=== PATIENT | female | born 1950 | race Caucasian/White ===

== ENCOUNTER 2018-12-03 12:50 | Emergency (ER) | payer MEDICARE, BC ==
--- NOTE | 2018-12-03 13:44 | EDM.PDOC ---
ED HPI GENERAL MEDICAL PROBLEM - General Chief Complaint: Lower Extremity Injury/Pain Stated Complaint: INFECTED FINGER Time Seen by Provider: 12/03/18 13:25 Source of Information: Reports: Patient, Skilled Nursing Records - History of Present Illness INITIAL COMMENTS - FREE TEXT/NARRATIVE: Debbie presents to the ED today with redness and swelling to left index finger. Denies any known injury or trauma, finger swollen yesterday, redness started today. Patient denies any other complaints, Tylenol did help with pain last night, pain worse with palpation. Patient denies any systemic symptoms. Patient is hypertensive here, takes Losartan at home, denies any chest pain, sob , headache. 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 ED EXAM, GENERAL - Physical Exam Exam: See Below Exam Limited By: No Limitations General Appearance: Alert, WD/WN, No Apparent Distress Respiratory/Chest: No Respiratory Distress, Lungs Clear, Normal Breath Sounds Cardiovascular: Regular Rate, Rhythm Back Exam: Normal Inspection Extremities: Normal Inspection, Normal Range of Motion, Other (Midly limited flexion of left index finger) Neurological: Alert, Oriented, CN II-XII Intact Psychiatric: Normal Affect, Normal Mood Skin Exam: Other (redeness to left index finger, mid phalangee on exterior lateral portion, petechiae, unblanchable with two small blood blisters, mildly warm, not hot, minimal swelling) Course - Vital Signs Last Recorded V/S: Last Vital Signs Temp 37.6 C 12/03/18 13:10 Pulse 74 12/03/18 13:10 Resp 18 12/03/18 13:10 BP 195/94 H 12/03/18 13:13 Pulse Ox 95 12/03/18 13:10 Debbie is a 68 year old female, hx of diabetes, presents today with redness and swelling to left index finger. Please refer to HPI and focused exam. Patient arrives here asymptomatically hypertensive and afebrile. Concerns with exam, more petechiae than cellulitic appearing. 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 Patient's blood work obtained, CBC, returns with normal platelet and white count, BMP with mildly low potassium, otherwise WNL. I did ask Dr. Collazo to evaluate finger as well due to unusual presentation, she agrees this is not typical of a cellulitis appearance but will cover patient with antibiotics and see how she does. I discussed my concerns with patient in detail as well as reasons to return to the ED. Certainly if this worsens or begins in other areas or patient develops systemic symptoms, I want her back here. Patient agreeable to plan of care and discharged in stable condition. - Orders/Labs/Meds Labs: Laboratory Tests 12/03/18 12/03/18 Range/Units 13:40 13:40 WBC 5.0 (4.5-11.0) K/uL RBC 4.87 (3.30-5.50) M/uL Hgb 14.9 (12.0-15.0) g/dL Hct 41.7 (36.0-48.0) % MCV 86 (80-98) fL MCH 31 (27-31) pg MCHC 36 (32-36) % Plt Count 158 (150-400) K/uL Neut % (Auto) 64 (36-66) % Lymph % (Auto) 24 (24-44) % [place] % (Auto) 10 H (2-6) % Eos % (Auto) 1 L (2-4) % Baso % (Auto) 1 (0-1) % Sodium 140 (140-148) mmol/L Potassium 3.5 L (3.6-5.2) mmol/L Chloride 105 (100-108) mmol/L Carbon Dioxide 28 (21-32) mmol/L Anion Gap 10.5 (5.0-14.0) mmol/L BUN 16 (7-18) mg/dL Creatinine 0.8 (0.6-1.0) mg/dL Est Cr Clr Drug Dosing 49.69 mL/min Estimated GFR (MDRD) > 60 (>60) Glucose 100 (74-106) mg/dL Calcium 8.9 (8.5-10.1) mg/dL Departure - Departure Time of Disposition: 14:30 Disposition: Home, Self-Care 01 Condition: Good Clinical Impression: Finger infection - Discharge Information Instructions: Cellulitis, Adult Referrals: PCP,None [Primary Care Provider] - Forms: ED Department Discharge Additional Instructions: Return with any worsening symptoms. You can take Tylenol, 650 mg every 4 hours for pain. Start Bactrim today, take as directed, take with food.
== END 2018-12-03 14:31 | disposition home or self-care (01) ==
LOC: JP.ED 12:50
DX: L08.9 Local infection of the skin and subcutaneous tissue, unspecified (principal); I10 Essential (primary) hypertension; Z79.899 Other long term (current) drug therapy
CPT/HCPCS: 36415; 80048; 85025; 99283

== ENCOUNTER 2019-02-26 06:20 | Day surgery (SDC) | payer MEDICARE, BC ==
[2019-02-26] MEDS ORDERED: Acetaminophen 500 MG Tab PO ONE (06:30)
[2019-02-26] MEDS ORDERED: Bupivacaine 0.5% 50 ML MDV ONE (06:42)
[2019-02-26] MEDS ORDERED: Lidocaine 1% with EPINEPHrine 1:100,000 50 ML MDV ONE (06:42)
[2019-02-26] MEDS ORDERED: Isosulfan Blue 5 ML SDV ONE (06:42)
[2019-02-26] MEDS ORDERED: Scopolamine 1.5 MG Transdermal Patch TRDERM SCH (07:00)
[2019-02-26] MEDS ORDERED: Neostigmine Methylsulfate 1 MG/ML 5 ML Syringe ONE (07:06)
[2019-02-26] MEDS ORDERED: Propofol 200 MG/20 ML SDV ONE (07:06)
[2019-02-26] MEDS ORDERED: Rocuronium 50 MG/5 ML Vial ONE (07:06)
[2019-02-26] MEDS ORDERED: fentaNYL 250 MCG/5 ML SDV ONE (07:06)
[2019-02-26] MEDS ORDERED: Glycopyrrolate 0.2 MG/ML 5 ML MDV ONE (07:06)
[2019-02-26] MEDS ORDERED: Dexamethasone 4 MG/ML SDV ONE (07:06)
[2019-02-26] MEDS ORDERED: Ondansetron 4 MG/2 ML SDV ONE (07:06)
[2019-02-26] MEDS: Dextrose 5%-Lactated Ringers 1,000 ML IV SCH ×2 (07:31→22:03)
[2019-02-26] MEDS ORDERED: ceFAZolin 2 GM in Premix Bag 1 BAG IV ONE (08:15)
[2019-02-26] MEDS ORDERED: Ondansetron 4 MG/2 ML SDV IVPUSH PRN (12:48)
[2019-02-26] MEDS ORDERED: HYDROmorphone 1 MG/ML Syringe IV PRN (12:49)
[2019-02-26] MEDS ORDERED: Ibuprofen 800 MG Tab PO PRN (12:49)
[2019-02-26] MEDS ORDERED: HYDROmorphone 0.5 MG/0.5 ML Syringe IVPUSH PRN (12:49)
[2019-02-26] MEDS: Acetaminophen 325 MG Tab PO SCH ×2 (14:52→20:30)
[2019-02-26] MEDS: ceFAZolin 2 GM in Premix Bag 1 BAG IV SCH ×2 (16:04→23:34)
[2019-02-26] MEDS: SCOPOLAMINE PATCH CHECK TOP SCH (16:19)
[2019-02-26] MEDS: Losartan 50 MG Tab PO SCH (22:11)
[2019-02-27] MEDS: Acetaminophen 325 MG Tab PO SCH ×2 (02:38→08:01)
[2019-02-27] MEDS: ceFAZolin 2 GM in Premix Bag 1 BAG IV SCH (08:01)
[2019-02-27] MEDS: Losartan 50 MG Tab PO SCH ×2 (08:16→08:17)
[2019-02-27] MEDS: SCOPOLAMINE PATCH CHECK TOP SCH (08:18)
--- NOTE | 2019-03-02 10:38 | DISCH ---
FINAL DIAGNOSIS: Carcinoma, left breast. SECONDARY DIAGNOSES: 1. History of hyperlipidemia. 2. History gastroesophageal reflux disease. 3. History of osteoarthritis. 4. History of hypertension. OPERATIVE PROCEDURES: This was done on 02/26/2019 with the left partial mastectomy (lumpectomy) with sentinel lymph node biopsy. SUMMARY: This is a 68-year-old presenting with a roughly 1 cm infiltrating ductal carcinoma involving the left breast. There was some question of possible genetic component to her status, but that was ruled out by preoperative genetic testing and after that, the patient opted to proceed with lumpectomy with sentinel lymph node biopsy. This was done on the date of procedure. Margins appeared to be clean, and 3 lymph nodes were free of evident metastatic disease. Postoperatively, no major problems were noted. She will be discharged home with usual medications plus Tylenol as needed for pain and followup will be with Dr. Vera and Medical Oncology in a week from tomorrow on 03/07/2019. We will instruct the medical oncology staff that they can run the primary tumor for Oncotype DX assay at this point as well.
--- NOTE | 2019-03-05 15:03 | OR ---
DATE OF PROCEDURE: 02/26/2019 SURGEON: Todd Vera MD PREOPERATIVE DIAGNOSIS: Carcinoma, left breast. POSTOPERATIVE DIAGNOSIS: Carcinoma, left breast. PROCEDURES: 1. Partial mastectomy (lumpectomy), left breast, with sentinel lymph node biopsy (35344). 2. Injection procedure for identification of sentinel lymph nodes ([id number]). ANESTHESIA: General. INDICATION FOR PROCEDURE: This is a 68-year-old presenting with a newly-diagnosed carcinoma in the lower inner quadrant of the left breast. Plan is to proceed with a partial mastectomy and a separate incision for sentinel lymph node biopsy. Potential risks of the procedure including bleeding, infection, cosmetic deformity, possibility that the margins may be involved requiring additional resection or a subsequent mastectomy, possibility of local recurrence requiring a subsequent mastectomy were all reviewed, and the patient wishes to proceed. DETAILS OF PROCEDURE: The patient was taken to the operating room and placed in a supine position. After general endotracheal anesthesia was induced, the area in the subareolar region of the left breast was injected with isosulfan blue dye to facilitate identification of sentinel lymph nodes. An ultrasound was then obtained, which confirmed the location of the tumor in the lower inner quadrant of the left breast. An incision was made over that area and then continued down through the skin and subcutaneous tissue. Initially, a wide excision around the area was obtained. This appeared to involve the edge of the tumor and an additional excision was then made around this area. The first specimen contained some positive tumor margin and the second excision was obviously free of tumor grossly per the pathologist. With the local mastectomy having been completed satisfactorily at this point, this was then closed with some 3-0 Vicryl stitch deep, 4-0 Vicryl subdermal stitches, and a 5-0 Vicryl subcuticular stitch. Attention was taken to the axillary dissection portion. A transverse incision over the lower axilla was made and carried down through the skin and subcutaneous tissue. As one entered the plane of the axillary fascia, the dye containing lymphatics were identified. These were then traced down and a total of three lymph nodes were then excised, the uppermost of which clearly contained some of the dye within it. Frozen sections on these were then obtained and they were free of adjuvant tumor, and at that point, the Bentley- Ferrer drain was placed through a stab wound inferior to the incision, which was then closed with some 3-0 and 4-0 Vicryl stitch deep and again with a 5-0 Vicryl subcuticular stitch. The drain was fixed with a 4-0 Vicryl stitch. The patient was taken to the recovery room in satisfactory condition. There were no evident complications. Todd Vera MD /[id number]
== END 2019-02-27 11:22 | disposition home or self-care (01) ==
LOC: JP.SDS 06:20 → JP.MS 11:15 → JP.SDS 02-27 11:22
PROVIDERS: ATTEND Surgery
DX: C50.312 Malignant neoplasm of lower-inner quadrant of left female breast (principal); I10 Essential (primary) hypertension; E78.5 Hyperlipidemia, unspecified; K21.9 Gastro-esophageal reflux disease without esophagitis; M19.90 Unspecified osteoarthritis, unspecified site; Z17.0 Estrogen receptor positive status [ER+]
CPT/HCPCS: 19301; 38525; 38900; 76998; 86300; 88307; 88331; 88332; 88342; 94762; A9270; J0690; J1100; J2020; J2405; J2704; J2710; J3010; J3490; J7042; Q9968

== ENCOUNTER 2019-03-09 07:02 | Day surgery (SDC) | payer MEDICARE, BC ==
[2019-03-09] MEDS ORDERED: fentaNYL 100 MCG/2 ML SDV ONE (07:44)
[2019-03-09] MEDS ORDERED: Midazolam 1 MG/ML 2 ML SDV ONE (07:44)
[2019-03-09] MEDS ORDERED: Propofol 200 MG/20 ML SDV ONE (07:44)
[2019-03-09] MEDS ORDERED: Dextrose 5%-Lactated Ringers 1,000 ML IV SCH (08:00)
[2019-03-09] MEDS ORDERED: Ampicillin/Sulbactam Na 3 GM in Sodium Chloride 0.9% 100 ML IV ONE (09:35)
[2019-03-09] MEDS ORDERED: Iopamidol 612 MG/ML 30 ML SDV PO ONE (11:18)
[2019-03-09] MEDS ORDERED: Iopamidol 612 MG/ML 100 ML Bottle IV PRN (11:18)
--- NOTE | 2019-03-09 12:25 | CRLCT ---
INDICATION: Pain. Assess for diverticulitis. COMPARISON: None. TECHNIQUE: 88 mL Isovue-300 IV contrast and enteric contrast rectally. Portal venous imaging lung bases to the proximal femurs. FINDINGS: 7 mm nodule posterior left lower lobe. Two tiny cysts in the left liver segment 3. Tiny cyst segment 7. Gallbladder is normal. Mild atherosclerosis of aorta. Small roughly 1 cm cyst ventral mid pole left kidney. No inflammation of large or small bowel. Rare sigmoid diverticula. No fluid or air in the peritoneum. Rectal catheter. Physiologic perineal fluid in the retrouterine cul-de-sac. Mild dextroscoliosis. IMPRESSION: Rare diverticula sigmoid colon without inflammation. Several small benign presumed cysts in the liver. 7 mm well-defined benign-appearing pulmonary nodule posterior left lower lobe warrants follow up with full CT of the chest. Please note that all CT scans at this facility use dose modulation, iterative reconstruction, and/or weight-based dosing when appropriate to reduce radiation dose to as low as reasonably achievable. Dictated by Dale Kemp MD @ Mar 09 2019 12:24PM Signed by Dr. Dale Kemp @ Mar 09 2019 12:24PM
--- NOTE | 2019-03-14 13:19 | OR ---
DATE OF PROCEDURE: 03/09/2019 SURGEON: Todd Vera MD PREOPERATIVE DIAGNOSIS: Indications for screening colonoscopy. POSTOPERATIVE DIAGNOSES: 1. Indications for screening colonoscopy. 2. Sigmoid colon diverticulitis with stricture of mid sigmoid colon at the area of diverticulitis, preventing passage of colonoscope further proximally. PROCEDURE: Flexible colonoscopy (incomplete). ANESTHESIA: IV sedation. INDICATION FOR PROCEDURE: A 68-year-old female referred for a colonoscopy with recent diagnosis of breast cancer, making her somewhat high risk for recurrent colon carcinoma. Plan is to proceed with a flexible colonoscopy with biopsies and polypectomy as indicated. Potential risks including bleeding and perforation were discussed, and the patient wishes to proceed. DETAILS OF PROCEDURE: The patient was taken to the operating room and placed in a left lateral decubitus position. IV sedation was administered, after which the initial digital rectal exam was performed and was unremarkable. Colonoscope was then passed into the rectum with retroflexion revealing uncomplicated hemorrhoidal columns. The scope was then passed up to the level of roughly 30 cm. As one approached that area, the colon became diffusely edematous and reddened, and there was an area of narrowing where the scope could not quite be passed through that region. Given the amount of redness and edema, this would be consistent with an area of diverticulitis, and the scope could not be passed further proximally, and the scope was withdrawn, and the procedure was then concluded. A CAT scan was obtained which showed diverticular disease. This seemed to be understating the degree of inflammation based on what we had seen endoscopically earlier, but the plan would be at this point to give the patient Unasyn 3 g in the recovery room, which had already been given, and then begin a 10-day course of Augmentin 875 mg p.o. b.i.d. We will see the patient back next Tuesday to review the situation. She will likely need to have re-evaluation of the colon in perhaps 4 to 6 weeks. One could do this on a Tuesday when we have a radiologist in house, so if an incomplete colonoscopy was once again encountered, we would then be able to obtaina barium enema on the same day without re-doing the prep. I will see the patient back next week for followup. Of note, the Bentley-Ferrer drain, which was present, was also removed today. Todd Vera MD /[id number]
== END 2019-03-09 13:45 | disposition home or self-care (01) ==
LOC: JP.SDS 07:02
PROVIDERS: ATTEND Surgery
DX: Z12.11 Encounter for screening for malignant neoplasm of colon (principal); K57.32 Diverticulitis of large intestine without perforation or abscess without bleeding; K56.699 Other intestinal obstruction unspecified as to partial versus complete obstruction; K64.9 Unspecified hemorrhoids; K21.9 Gastro-esophageal reflux disease without esophagitis; I10 Essential (primary) hypertension; E78.00 Pure hypercholesterolemia, unspecified; C50.919 Malignant neoplasm of unspecified site of unspecified female breast
CPT/HCPCS: 74177; G0104; J0295; J2250; J2704; J3010; J7030; J7042; Q9967

== ENCOUNTER 2019-05-07 09:10 | Day surgery (SDC) | payer MEDICARE, BC ==
[2019-05-07] MEDS ORDERED: Dextrose 5%-Lactated Ringers 1,000 ML IV SCH (10:30)
[2019-05-07] MEDS ORDERED: fentaNYL 100 MCG/2 ML SDV ONE (10:42)
[2019-05-07] MEDS ORDERED: Midazolam 1 MG/ML 2 ML SDV ONE (10:42)
[2019-05-07] MEDS ORDERED: Propofol 200 MG/20 ML SDV ONE (10:43)
--- NOTE | 2019-05-07 15:21 | CR ---
Barium Enema Screening CLINICAL HISTORY: Incomplete colonoscopy FINDINGS: Preliminary film of the abdomen is unremarkable. Barium flowed freely from the rectum to the cecum. Sigmoid colon was mildly redundant. There is some mild sigmoid diverticulosis without evidence diverticulitis. There are a few isolated diverticula in the descending colon. There are no abnormal masses in the colon. No obstructing lesions are seen. There is reflux into a normal-appearing terminal ileum. Appendix is visualized. IMPRESSION: Mild diverticulosis without evidence of diverticulitis No persistent filling defects or annular constricting lesions
--- NOTE | 2019-05-09 15:14 | OR ---
DATE OF PROCEDURE: 05/07/2019 SURGEON: Todd Vera MD PREOPERATIVE DIAGNOSIS: Indication for screening colonoscopy. POSTOPERATIVE DIAGNOSES: 1. Incomplete colonoscopy secondary to edema and tortuosity of sigmoid colon. 2. Otherwise, uncomplicated diverticulosis. OPERATIVE PROCEDURE: Flexible colonoscopy (to 40 cm), incomplete. INDICATION FOR PROCEDURE: This 68-year-old female was recently diagnosed with breast carcinoma and was referred for a screening colonoscopy. Some time ago, the patient underwent a colonoscopy, which was incomplete due to what appeared to be some active diverticulitis. The patient was treated with antibiotics and is to undergo a repeat colonoscopy at this time. She is aware of the possibility that this, once again, may be incomplete, but we have scheduled her today, on a day where we have radiologist in-house who could complete the screening process by means of barium enema, if the colonoscopy was incomplete. Potential risks including bleeding and perforation were discussed, and the patient wishes to proceed. DETAILS OF PROCEDURE: The patient was taken to the operating room and placed in a left lateral decubitus position. IV sedation was administered, after which the initial digital rectal exam was performed and was unremarkable. Colonoscope was then passed into the rectum with retroflexion revealing uncomplicated hemorrhoidal columns. The scope was then eventually passed to the level of the 40-cm autumn from the dentate line. The patient had 1 initial curve in the sigmoid colon, which was somewhat thickened, but not reddened or acutely inflamed, but probably more chronically fixed due to previous diverticulitis. This could be traversed and a second curve was then present, and we were not able to advance the scope beyond that point, probably related to the somewhat fixed nature of the initial curve. The scope was then withdrawn, and the procedure then concluded. The patient otherwise was noted to have some uncomplicated diverticulosis but no polyps or other signs of neoplasia at that level. Postoperatively, the patient had a barium enema, which revealed otherwise uncomplicated diverticulosis, but no signs of any tumor or polyps. The patient was subsequently discharged home. On subsequent screening, which should probably be in 5 years, the patient could either have a barium enema x-ray or virtual colonoscopy by means of a CAT scan. Todd Vera MD /[id number]
== END 2019-05-07 15:27 | disposition home or self-care (01) ==
LOC: JP.SDS 09:10
PROVIDERS: ATTEND Surgery
DX: Z12.11 Encounter for screening for malignant neoplasm of colon (principal); K57.30 Diverticulosis of large intestine without perforation or abscess without bleeding; I10 Essential (primary) hypertension; E78.5 Hyperlipidemia, unspecified
CPT/HCPCS: 74270; G0104; J2250; J2704; J3010; J7042